=== PATIENT | female | born 1960 | race Caucasian/White ===

== ENCOUNTER 2016-07-10 08:34 | Emergency (ER) | payer OTHER ==
[~2016-07-10 08:34] MED LIST: CYCL5TAB PO; HYDR-4003 PO; PROP10TA8 PO
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
[2016-07-10 09:00] VITALS: BP 105/67; PULSE 77; RESP 16; O2SAT 97
[2016-07-10] MEDS ORDERED: HYDROmorphone 0.5 mg/0.5 mL iSecure Syringe IVPUSH PRN (09:00)
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
[2016-07-10 09:44] VITALS: BP 116/84; PULSE 86; RESP 16; O2SAT 96
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
[2016-07-10 10:44] LABS: Mean Corpuscular Hemoglobin 31.6 pg (27.0-35.0); Mean Corpuscular Volume 92.6 fL (81-100)
[2016-07-10 10:45] LABS: BASOPHILS % (AUTO) 0.2 % (0-3); EOSINOPHILS % (AUTO) 1.4 % (0-5); MONOCYTES % (AUTO) 10.2 % (4-12); Platelet Count 343 bil/L (150-400)
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
[2016-07-10] MEDS ORDERED: ONDA-53 PO (12:14)
[2016-07-10] MEDS ORDERED: HYDR-3740 PO (12:14)
[2016-07-10] MEDS ORDERED: CARI250T PO (12:14)
[2016-07-10] MEDS ORDERED: DOCU-41 PO (12:14)
[2016-07-10 13:35] VITALS: BP 107/67; PULSE 70; RESP 20; O2SAT 98
[2016-07-22] MEDS ORDERED: DICL100T PO (16:52)
[2016-07-22] MEDS ORDERED: HYDR-3089 PO (16:52)
[2016-07-22] MEDS ORDERED: CARI250T PO (16:52)
== END 2016-07-10 13:37 | disposition home or self-care (01) ==
LOC: EDBD 08:34 → EDUNIT# 08:34 → SED 08:34
DX: S52.255A Nondisplaced comminuted fracture of shaft of ulna, left arm, initial encounter for closed fracture (principal); S92.134A Nondisplaced fracture of posterior process of right talus, initial encounter for closed fracture; S92.021A Displaced fracture of anterior process of right calcaneus, initial encounter for closed fracture; M54.2 Cervicalgia; V43.53XA Car driver injured in collision with pick-up truck in traffic accident, initial encounter; Y93.89 Activity, other specified; Y99.8 Other external cause status; Y92.410 Unspecified street and highway as the place of occurrence of the external cause; Z87.891 Personal history of nicotine dependence; Z98.1 Arthrodesis status; Z88.8 Allergy status to other drugs, medicaments and biological substances; Z88.1 Allergy status to other antibiotic agents; Z91.041 Radiographic dye allergy status
CPT/HCPCS: 29125; 29515; 36415; 71010; 72125; 73090; 73590; 73630; 73700; 80053; 85025; 96374; 99285; G0390

== ENCOUNTER 2016-07-24 07:46 | Day surgery (SDC) | payer OTHER ==
[~2016-07-24] VITALS: Ht 167 cm; Wt 77.5 kg
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
[~2016-07-24 07:46] MED LIST changes: +CARI250T PO; -CYCL5TAB PO; +CeFAZolin Inj 2 GM in IV Premix 1 EACH IV ONE; +DICL100T PO; +HYDR-3089 PO; -HYDR-4003 PO; -PROP10TA8 PO
[2016-07-24] MEDS ORDERED: fentaNYL-PF 50 mCg/mL 2 mL Inj ONE (07:47)
[2016-07-24] MEDS ORDERED: Rocuronium 10 mg/mL 5 mL Inj ONE (07:47)
[2016-07-24] MEDS ORDERED: Ondansetron 2 mg/mL 2 mL Inj ONE (07:47)
[2016-07-24] MEDS: Lactated Ringer's 1,000 ML IV SCH ×2 (08:07→11:00)
[2016-07-24] MEDS ORDERED: HYDR-3825 PO (08:09)
[2016-07-24 08:19] VITALS: BP 110/70; PULSE 82; RESP 12; O2SAT 97
[2016-07-24] MEDS ORDERED: fentaNYL-PF 50 mCg/mL 2 mL Inj IVPUSH PRN (08:35)
[2016-07-24] MEDS ORDERED: LORazepam 1 mg Tablet PO PRN (08:35)
[2016-07-24] MEDS ORDERED: Lactated Ringer's 1,000 ML IV SCH (10:47)
[2016-07-24] MEDS ORDERED: Lactated Ringer's 500 ML IV PRN (10:47)
[2016-07-24] MEDS ORDERED: Dexamethasone 4 mg/mL Inj IVPUSH PRN (10:50)
[2016-07-24] MEDS ORDERED: Labetalol 5 mg/mL 4 mL Inj IV PRN (10:50)
[2016-07-24] MEDS ORDERED: HYDROmorphone 1 mg/mL Inj IVPUSH PRN (10:50)
[2016-07-24] MEDS ORDERED: hydrALAZINE 20 mg/mL Inj IVPUSH PRN (10:50)
[2016-07-24] MEDS ORDERED: Ondansetron 2 mg/mL 2 mL Inj IVPUSH PRN (10:50)
[2016-07-24] MEDS ORDERED: Phenylephrine 10,000 mCg/mL Inj IVPUSH PRN (10:50)
[2016-07-24] MEDS ORDERED: EPHEDrine Sulfate 50 mg/mL Inj IVPUSH PRN (10:50)
[2016-07-24] MEDS ORDERED: Atropine 0.4 mg/mL Inj IVPUSH PRN (10:50)
[2016-07-24] MEDS ORDERED: Bupivacaine-MPF 0.5% W/EPI 30 mL Inj INFILTRATE ONE (11:00)
[2016-07-24] MEDS ORDERED: Lactated Ringer's 1,000 ML IV ONE (14:49)
[2016-07-24 15:23] VITALS: BP 114/79; PULSE 89; RESP 17; O2SAT 94
[2016-07-24] MEDS ORDERED: oxyCODONE-Acetamin 5-325 mg Tablet PO PRN (15:25)
[2016-07-24 15:30] VITALS: BP 120/72; PULSE 85; RESP 15; O2SAT 99
[2016-07-24 15:40] VITALS: BP 128/66; PULSE 82; RESP 12; O2SAT 99
[2016-07-24] MEDS: fentaNYL-PF 50 mCg/mL 2 mL Inj IVPUSH PRN ×2 (15:40→16:00)
--- NOTE | 2016-07-24 15:49 | PCM.ANEP1 ---
Post Anesthesia PACU Phase 1 Assessment Vital Signs Vital Signs Date Time Temp Pulse Resp B/P Pulse Ox O2 Delivery O2 Flow Rate FiO2 07/24/16 08:19 82 12 110/70 97 Room Air Anesthetic Administered: GA Level of Alertness: Awake, talking IQBAL's with Equal Strength: Yes Pain: Yes (medial aspect of operative foot) Nausea or Vomiting: No CV Function & Hydration Stable: No Airway Device: Oxygen Delivery: Nasal Cannula Lungs: Normal Air Movement PACU Phase 2 Assessment Complications: No Follow up Care: No Patient Instructions Provided: N/A Kaushik Kim MD Jul 24, 2016 15:49
[2016-07-24 16:20] VITALS: BP 106/66; PULSE 80; RESP 12; O2SAT 100
[2016-07-24 16:30] VITALS: BP 99/80; PULSE 89; RESP 14; O2SAT 99
--- NOTE | 2016-09-14 09:10 | PCM.PODPO ---
Podiatry Operative Report Date of Service: Jul 24, 2016 Date of Service 07/24/2016 Pre Operative Diagnosis Right lower extremity calcaneal fracture Post Operative Diagnosis Same as preoperative diagnosis Procedure Open reduction internal fixation right calcaneal fracture Surgeon Surgeon: Boni Maldonado DPM Assistants: None Indication for Procedure Displaced right calcaneal fracture with posterior facet joint depression Findings Comminuted fracture of the right calcaneus with depression of the posterior facet and moderate soft tissue contracture Details of Procedure Patient was identified in the preoperative holding area. All preoperative comorbidities and allergies were identified and thoroughly discussed. Patient was transported into the operating room and placed under general anesthesia by the anesthesia service in the supine position. The patient was then prepped and draped in the normal aseptic technique. A preoperative timeout was performed. Prior to induction the patient received a popliteal block of the right lower extremity performed by the anesthesia service. Attention was first paid to the lateral aspect of the right lower extremity. An incision was made overlying the lateral aspect of the ankle and foot posteriorly consistent with a lateral extensile approach. Once that initially her skin all subcutaneous neurovascular structures were identified and retracted out of the surgical field. Sharp dissection was carried directly down to the posterior lateral wall of the calcaneus. A subperiosteal flap was then raised carefully with a # 15 blade and conway periosteal elevator. Light touch distraction was performed during dissection. The lateral wall of the calcaneus and posterior facet were identified extending just proximal to the anterior calcaneal process and calcaneocuboid joint. K wires were inserted into the talus to provide no touch flap distraction technique. During retraction the flap was under minimal tension. Direct visualization of the calcaneus revealed a severely comminuted calcaneal fracture with comminution of the posterior facet and joint depression of the lateral fragment of the posterior facet with widening of the posterior body of the calcaneus. The lateral wall of the calcaneus was debrided and removed and placed on saline. Severe comminution of the central body of the calcaneus was noted. Hematoma was debrided carefully with a curette and minimal pressure saline flush. A Steinmann pin was placed through the posterior plantar aspect of the calcaneal body and retraction of the posterior body was performed in an attempt to reduce the posterior calcaneal body to the constant fragment of the sustentaculum leslie and medial aspect of the posterior facet. Several attempts were performed however perfect reduction was unable to be achieved due to what was perceived as soft tissue contraction and inability to fully distract the posterior calcaneal body. Adequate apposition of the posterior calcaneal body and constant fragment was achieved with minimal gapping and temporary K wire fixation was placed. The lateral aspect of the posterior facet was then mobilized and reduction to the medial aspect of the posterior facet was performed. A moderate amount of central comminution was noted with loss of a small portion of the central aspect of the posterior facet articular surface. Temporary K wire fixation was utilized to reduce the lateral aspect of the posterior facet to the medial aspect of the posterior facet under direct visualization and utilizing intraoperative C-arm guidance. The lateral wall of the calcaneus was then replaced bone loss was noted within the central portion of the body of the calcaneus inferior to the posterior facet and middle facet. Bone chips were placed in the void and press-fit into place to provide additional support. An Arthrex calcaneal plate was then inserted utilizing intraoperative C-arm guidance to aid inch screw placement. A mixture of nonlocking and locking screws were inserted under intraoperative C- arm guidance. This wound was then closely flushed with large amounts of normal saline. Closure was performed carefully utilizing #2.0 and number 3. 0 Vicryl in a layered fashion with 3. 0 Prolene for skin closure. No complications occurred during this procedure. Wounds were dressed with Adaptic sterile 4 x 4 gauze Kerlix and a mildly compressive Chong compression dressing with a posterior splint. The patient was awoken by anesthesia and transported into the postanesthesia care unit. Grafts, Implants: Grafts-See Implant Record, Implants-See Implant Record Complications There were no periprocedural complications identified. Condition Stable Anesthetic Administered: GA Catheters: None Output, Estimated Blood Loss: 100 Blood Admin during surgery: No Surgical Cast or Splint: Well-padded Short Leg Splint Surgical Specimen Removed: No Specimen sent to Pathology: No Post Operative Plan Ice and elevate right lower extremity Strict nonweightbearing right lower extremity Keep dressing clean dry and intact Follow-up in 1 week Boni Maldonado DPM Sep 14, 2016 09:10
== END 2016-07-24 23:59 | disposition home or self-care (01) ==
LOC: SAS 07:46
PROVIDERS: ATTEND Podiatrist Foot & Ankle Surgery
PROC: 0QSL04Z Reposition Right Tarsal with Internal Fixation Device, Open Approach (ICD-10-PCS; principal; 2016-07-24 09:45)
DX: S92.011A Displaced fracture of body of right calcaneus, initial encounter for closed fracture (principal); V43.53XA Car driver injured in collision with pick-up truck in traffic accident, initial encounter
CPT/HCPCS: 28415; 76001; 76942; C1713; J0690; J1170; J2250; J2405; J3010; J7120